=== PATIENT | female | born 1955 | race Caucasian/White ===

== ENCOUNTER 2018-12-14 17:05 | Emergency (ER) | payer OTHER, SELFPAY ==
[2018-12-14 17:05] VITALS: BP 152/86; PULSE 84; RESP 16; TEMP 37.2; O2SAT 96; BMI 26.6
--- NOTE | 2018-12-14 17:43 | RAD_ITS ---
STUDY: X-RAY - LEFT KNEE REASON FOR EXAM: Female, 63 years old. Pain TECHNIQUE: 4 view(s) of the knee. COMPARISON: None. FINDINGS: There is no evidence of fracture or dislocation. There are mild tricompartmental degenerative changes. There is a small suprapatellar joint effusion. There are no radiodense foreign bodies. RAD/Knee 4 or More Views IMPRESSION: No fracture or dislocation. Mild degenerative change. Small joint effusion. Electronically Signed: Ronaldo Jose, at 18:20 EDT Tel , Service support ,
--- NOTE | 2018-12-14 19:12 | ED.VIS.LOWEX ---
History of Present Illness Chief Complaint: Lower Extremity Injury Informant: Patient Occurred: Weeks - 1-2 Context: Sudden Onset Timing: Waxes and wanes Quality of Pain: Aching Current Severity: Moderate Maximum Severity: Severe Worsened by: moving Relieved by: remaining still Associated Symptoms: Loss of Funtion. Negative for: Parasthesia, Weakness Narrative: Patient states when she was going up steps 1 or 2 weeks ago, she felt some pain in her left knee, it subsided, ever since she has been having crackling here and there, today while simply walking around the corner, she suddenly felt extreme pain and the inability to bend her knee at all, feeling like it was locked in place. This has never happened before. Past Medical History - Allergies and Home Meds Allergies/Adverse Reactions: Allergies No Known Allergies Allergy (Verified 12/14/18 17:07) Primary Care Physician: Zohaib Adkins MD [Primary Care Provider] - Smoking Status: Former smoker Review of Systems General: Denies: Chills, Fever Musculoskeletal: Reports: Extremity Pain. Denies: Swelling Skin: Denies: Rash, Wounds Neurological: Denies: Parasthesia, Numbness Physical Exam Vital Signs/Narrative: Vital Signs Temp Pulse Resp BP Pulse Ox 12/14/18 17:05 98.9 F 84 16 152/86 H 96 Inital Vital Signs reviewed: Yes - Extremity Exam Left Knee: Limited ROM - w/o effusion. ext mech intact. unable to flex past 15-20 degrees due to severe pain. all ligaments intact w/ short end points, pain only w/ stressing MCL. stable knee joint on stressing. not excessively warm/hot. no overlying skin color abn or lesions.. Negative for: Deformity General: Well nourished, Well developed Head: Normocephalic, Atraumatic Skin: Normal color, No rash, No Trauma Neurological: Alert, Oriented x3, Cranial nerves II-XII grossly intact, Normal Strength, Normal Sensation Diagnostic/Tx/Re-eval Clinical Impression(s) from Imaging Studies Knee X-Ray 12/14/18 17:43 IMPRESSION: No fracture or dislocation. Mild degenerative change. Small joint effusion. Electronically Signed: Ronaldo Jose, at 18:20 EDT Tel , Service support , - Medical Decision Making Discussed with Dr. Cabrera, agrees that it sounds like this patient may have a meniscus tear. He advised close outpatient follow-up tomorrow with a knee immobilizer and crutches and stated we could offer to the patient to inject her knee with lidocaine, followed by forcibly bending in order to help unlock it and help her with pain in the meantime. She states while having it remain still in a neutral almost fully extended position, she is okay and would prefer to wait for that until she sees orthopedics tomorrow, and agrees with a prescription for pain medication, knee immobilizer, and crutches and will see orthopedics tomorrow. ED Disposition - Plan for ED Patient: Disposition: Home or Assisted Living Diagnosis: Acute internal derangement of left knee Instructions: ED Meniscal Injury Knee Poss, ED Immobilizer Knee Prescriptions: Hydrocodone Bitart/Apap 5-325 [[place] 5MG-325MG] 1 tab PO Q4H PRN PRN 3 Days #12 tab PRN Reason: Pain Referrals: Ronaldo Cabrera MD [STAFF PHYSICIAN] - 1 Day (call in am for appt time)
--- NOTE | 2018-12-14 19:16 | ED.DCSUM_ITS ---
History of Present Illness Chief Complaint: Lower Extremity Injury Informant: Patient Occurred: Weeks - 1-2 Context: Sudden Onset Timing: Waxes and wanes Quality of Pain: Aching Current Severity: Moderate Maximum Severity: Severe Worsened by: moving Relieved by: remaining still Associated Symptoms: Loss of Funtion. Negative for: Parasthesia, Weakness Narrative: Patient states when she was going up steps 1 or 2 weeks ago, she felt some pain in her left knee, it subsided, ever since she has been having crackling here and there, today while simply walking around the corner, she suddenly felt extreme pain and the inability to bend her knee at all, feeling like it was locked in place. This has never happened before. Past Medical History - Allergies and Home Meds Allergies/Adverse Reactions: Allergies No Known Allergies Allergy (Verified 12/14/18 17:07) Primary Care Physician: Zohaib Adkins MD [Primary Care Provider] - Smoking Status: Former smoker Review of Systems General: Denies: Chills, Fever Musculoskeletal: Reports: Extremity Pain. Denies: Swelling Skin: Denies: Rash, Wounds Neurological: Denies: Parasthesia, Numbness Physical Exam Vital Signs/Narrative: Vital Signs Temp Pulse Resp BP Pulse Ox 12/14/18 17:05 98.9 F 84 16 152/86 H 96 Inital Vital Signs reviewed: Yes - Extremity Exam Left Knee: Limited ROM - w/o effusion. ext mech intact. unable to flex past 15- 20 degrees due to severe pain. all ligaments intact w/ short end points, pain only w/ stressing MCL. stable knee joint on stressing. not excessively warm/hot. no overlying skin color abn or lesions.. Negative for: Deformity General: Well nourished, Well developed Head: Normocephalic, Atraumatic Skin: Normal color, No rash, No Trauma Neurological: Alert, Oriented x3, Cranial nerves II-XII grossly intact, Normal Strength, Normal Sensation Diagnostic/Tx/Re-eval Clinical Impression(s) from Imaging Studies Knee X-Ray 12/14/18 17:43 IMPRESSION: No fracture or dislocation. Mild degenerative change. Small joint effusion. Electronically Signed: Ronaldo Jose, at 18:20 EDT Tel , Service support , - Medical Decision Making Discussed with Dr. Cabrera, agrees that it sounds like this patient may have a meniscus tear. He advised close outpatient follow-up tomorrow with a knee immobilizer and crutches and stated we could offer to the patient to inject her knee with lidocaine, followed by forcibly bending in order to help unlock it and help her with pain in the meantime. She states while having it remain still in a neutral almost fully extended position, she is okay and would prefer to wait for that until she sees orthopedics tomorrow, and agrees with a prescription for pain medication, knee immobilizer, and crutches and will see orthopedics tomorrow. ED Disposition - Plan for ED Patient: Disposition: Home or Assisted Living Diagnosis: Acute internal derangement of left knee Instructions: ED Meniscal Injury Knee Poss, ED Immobilizer Knee Prescriptions: Hydrocodone Bitart/Apap 5-325 [[place] 5MG-325MG] 1 tab PO Q4H PRN PRN 3 Days #12 tab PRN Reason: Pain Referrals: Ronaldo Cabrera MD [STAFF PHYSICIAN] - 1 Day (call in am for appt time)
[2018-12-14 20:00] VITALS: RESP 16
== END 2018-12-14 20:01 | disposition home or self-care (01) ==
PROVIDERS: Emergency Provider Emergency Medicine; Family Provider Family Medicine; PCP Family Medicine
DX: S89.92XA Unspecified injury of left lower leg, initial encounter (principal); X58.XXXA Exposure to other specified factors, initial encounter; Y93.01 Activity, walking, marching and hiking; Y92.9 Unspecified place or not applicable; Z87.891 Personal history of nicotine dependence
CPT/HCPCS: 73564; 99284

== ENCOUNTER → 2019-01-09 08:18 | Outpatient (CLI) | payer OTHER, SELFPAY ==
[2018-12-14 17:05] VITALS: BMI 26.6
--- NOTE | 2019-01-09 08:40 | EKG12_ITS ---
Test Reason : PREOP Blood Pressure : / mmHG Vent. Rate : 063 BPM Atrial Rate : 063 BPM P-R Int : 148 ms QRS Dur : 082 ms QT Int : 404 ms P-R-T Axes : 034 -34 037 degrees QTc Int : 413 ms Normal sinus rhythm Left axis deviation Low voltage QRS Cannot rule out Anterior infarct 08-OCT-2010), ag undetermined Abnormal ECG Confirmed by GUSTAVO MONTILLA, DUYEN ([id number]), state editor JULIA URIBE ([id number]) on 01/10/2019 12:24:47 PM Referred By: Tyesha Ruiz Confirmed By:DUYEN CHEN MD
[2019-01-09 09:48] LABS: Hematocrit 41.7 % (37-47); Hemoglobin 13.4 g/dl (12.0-15.0); Mean Corp Hgb Conc 32.1 g/gl (32-36); Mean Corpuscular Hgb 28.3 pg (27.0-32.0); Mean Platelet Vol. 10.1 fl (6.2-12.0); Platelet Count 256 K/mm3 (150-450); RBC Distribution Width CV 14.1 % (11.6-14.6); RBC Distribution Width SD 45.6 fl (35.1-43.9); Red Blood Count 4.74 M/mm3 (4.2-5.4); White Blood Count 4.5 K/mm3 (4.4-11.0)
[2019-01-09 09:57] LABS: Scan Indicated on CBC? Y/N NO
[2019-01-09 10:04] LABS: Anion Gap 9 (5-15); BUN 21 mg/dL (7-18); BUN/Creat Ratio 26.6 RATIO (10-20); Calcium,Total 8.7 mg/dL (8.5-10.1); Chloride 106 mmol/L (98-107); Creatinine, Serum 0.79 mg/dL (0.55-1.02); EST Glomerular Filtration Rate 78 mL/min (>60); Est Glom Filt Rate - Afr Amer 94 mL/min (>60); Glucose 76 mg/dL (74-106); Potassium 4.2 mmol/L (3.5-5.1); Sodium Level 143 mmol/L (136-145)
== END ==
PROVIDERS: Family Provider Family Medicine; PCP Family Medicine; Referring Provider Physician Assistant; Visit Provider Physician Assistant
DX: Z01.818 Encounter for other preprocedural examination (principal); Z01.810 Encounter for preprocedural cardiovascular examination; I10 Essential (primary) hypertension
CPT/HCPCS: 36415; 80048; 85027; 93005

== ENCOUNTER 2019-04-27 17:21 | Emergency (ER) | payer MEDICARE, SELFPAY ==
[2019-04-27 17:22] VITALS: BP 158/77; PULSE 75; RESP 16
[2019-04-27 17:24] VITALS: PULSE 67; RESP 16; TEMP 36.6; O2SAT 99; BMI 35.2
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
[2019-04-27] MEDS: Acetaminophen 325 MG Tablet 650 MG PO (17:47)
[2019-04-27] MEDS: Diphth,Pertuss(Acell),Tet Vac 0.5 ML Vial IM (17:47)
== END 2019-04-27 18:20 | disposition home or self-care (01) ==
PROVIDERS: Emergency Provider Emergency Medicine; Family Provider Family Medicine; PCP Family Medicine
DX: S00.83XA Contusion of other part of head, initial encounter (principal); S00.81XA Abrasion of other part of head, initial encounter; V89.2XXA Person injured in unspecified motor-vehicle accident, traffic, initial encounter; Y92.413 State road as the place of occurrence of the external cause; Y93.89 Activity, other specified; Z87.891 Personal history of nicotine dependence
CPT/HCPCS: 90715; 99284

== ENCOUNTER → 2019-05-21 10:36 | Outpatient (CLI) | payer MEDICARE, SELFPAY ==
[2019-04-27 17:24] VITALS: BMI 35.2
--- NOTE | 2019-05-21 10:38 | US_ITS ---
PROCEDURES: ULTRASOUND AORTA REASON FOR EXAM: Female, 64 years old. Abdominal aortic aneurysm screening. TECHNIQUE: Ultrasound evaluation of the aorta was performed with real-time and static redding-scale imaging. COMPARISON: None. FINDINGS: There is no elongation or tortuosity of the abdominal aorta. Aorta measures: Proximal 1.8 cm. Middle 1.4 cm. Distal 1.5 cm. Aorta measure transversely: Proximal 1.7 cm. Middle 1.5 cm. Distal 1.7 cm. Right iliac artery measures: 1.0 cm. Right iliac artery measure transversely: 1.1 cm. Left iliac artery measures: 0.9 cm. Left iliac artery measure transversely: 0.9 cm. There is no demonstrated aneurysm.. US/Aorta IMPRESSION: Normal abdominal aorta. Specifically, no significant stenosis or aneurysmal dilatation seen. Electronically Signed: Roseline Funes MD at 2:50 EST , Service support ,
== END ==
PROVIDERS: Family Provider Family Medicine; PCP Family Medicine; Referring Provider Family Medicine; Visit Provider Family Medicine
DX: Z13.6 Encounter for screening for cardiovascular disorders (principal)
CPT/HCPCS: 76775

== ENCOUNTER → 2019-05-22 10:56 | Outpatient (CLI) | payer MEDICARE, SELFPAY ==
[2019-04-27 17:24] VITALS: BMI 35.2
--- NOTE | 2019-05-22 10:59 | BD_ITS ---
STUDY: DUAL ENERGY X-RAY ABSORPTIOMETRY / DXA REASON FOR EXAM: Female, 64 years old. The patient is postmenopausal. Loss of height. TECHNIQUE: Bone Mineral Density (BMD) measurements of lumbar spine and bilateral hips were obtained. COMPARISON: None. FINDINGS: Lumbar Spine (L1-L4): g/cm2 (0.981) / T-score (-1.5) / Z-score (0.1) Findings are suggestive of osteopenia with a low fracture risk. Left Femur Total: g/cm2 (0.844) / T-score (-1.3) / Z-score (-0.1) Left Femoral Neck: g/cm2 (0.799) / T-score (-1.7) / Z-score (-0.3) Right Femur Total: g/cm2 (0.931) / T-score (-0.6) / Z-score (0.6) Right Femoral Neck: g/cm2 (0.830) / T-score (-1.5) / Z-score (0.0) BD/Dexa Bone Density Study IMPRESSION: The patient is considered osteopenic as outlined below according to World Mahamed Organization (WHO) criteria with a moderate fracture risk. Reference Information: The T-score is the number of standard deviations above or below the standard which is normal for young adults at their peak bone mineral density. The World Health Organization (WHO) interprets the T-scores as follows: Above -1 Normal bone density Between -1 and -2.5 Osteopenia Equal to / or below -2.5 Osteoporosis As a practical clinical guideline, osteopenia may be graded as follows: Mild -1 through -1.5 Moderate -1.6 through -2.0 Severe -2.1 through -2.4 The Z-score is the number of standard deviations above or below age-matched controls. A Z-score of less than -1.5 would be considered abnormal. References: 1. NIH Osteoporosis and Related Bone Diseases http://www.osteo.org 2. International Society for Clinical Densitometry http://www.iscd.org 3. National Osteoporosis Foundation http://www.nof.org Electronically Signed: Chicho Millan, at 15:07 EST , Service support ,
== END ==
PROVIDERS: Family Provider Family Medicine; PCP Family Medicine; Referring Provider Family Medicine; Visit Provider Family Medicine
DX: Z78.0 Asymptomatic menopausal state (principal)
CPT/HCPCS: 77080

== ENCOUNTER → 2020-02-01 09:46 | Outpatient (CLI) | payer MEDICARE, SELFPAY ==
[2020-02-01 12:24] LABS: Absolute Lymphocyte Count 1.68 X10^3/uL (0.83-4.51); Absolute Neutrophil Count 2.1 X10^3/uL (2.0-7.7); Basophil# 0.04 X10^3/uL; Basophil% 0.9 % (0-1); Eosinophil# 0.08 X10^3/uL; Eosinophils% 1.9 % (0-5); Hematocrit 42.6 % (37-47); Hemoglobin 13.2 g/dL (12.0-15.0); Lymphocyte # 1.68 X10^3/ul (4.0); Lymphocyte % 39.5 % (19-41); Mean Corpuscular Hgb 28.1 pg (27.0-32.0); Mean Corpuscular Volume 90.6 fL (81-99); Mean Platelet Vol. 10.9 fl (6.2-12.0); Monocyte# 0.35 X10^3/uL; Monocyte% 8.2 % (0-10); NRBC Flagged by Analyzer 0 % (0-5); Neutrophil # 2.08 X10^3/uL (2.7-7.7); Platelet Count 236 K/mm3 (150-450); RBC Distribution Width CV 13.2 % (11.6-14.6); RBC Distribution Width SD 43.8 fl (35.1-43.9); White Blood Count 4.3 K/mm3 (4.4-11.0)
[2020-02-01 12:39] LABS: ALB/GLOB Ratio 1.2 RATIO (0.9-2.4); AST(SGOT) 16 U/L (15-37); Alanine Aminotransfer ALT/SGPT 23 U/L (13-56); Albumin, Serum 3.6 g/dL (3.2-5.0); Alkaline Phosphatase 62 U/L (45-117); Anion Gap 3 (5-15); BUN 16 mg/dL (7-18); BUN/Creat Ratio 19.1 RATIO (10-20); Calcium,Total 8.4 mg/dL (8.5-10.1); Chloride 111 mmol/L (98-107); Creatinine, Serum 0.84 mg/dL (0.55-1.02); EST Glomerular Filtration Rate 73 mL/min (>60); Est Glom Filt Rate - Afr Amer 88 mL/min (>60); Globulin 3.1 g/dL (2.2-4.2); Glucose 92 mg/dL (74-106); Protein, Total 6.7 g/dL (6.4-8.2); Sodium Level 142 mmol/L (136-145); Thyroid Stim Hormone (TSH) 1.48 uIU/mL (0.358-3.74)
== END ==
PROVIDERS: PCP Family Medicine; Referring Provider Family Medicine; Visit Provider Family Medicine
DX: R00.2 Palpitations (principal)
CPT/HCPCS: 36415; 80053; 84443; 85025

== ENCOUNTER 2021-09-10 07:59 | Outpatient (CLI) | payer MEDICARE, SELFPAY ==
--- NOTE | 2021-09-10 08:04 | BI_ITS ---
MAMMOGRAPHY - BILATERAL SCREENING REASON FOR EXAM: Female, 66 years old. Routine annual screening examination. PERTINENT HISTORY: Grandmother with breast cancer. TECHNIQUE: Digital bilateral breast paulie (3D mammographic acquisition) in the CC and MLO projections. 2-D mediolateral oblique (MLO) and craniocaudad (CC) views of both breasts were obtained. CAD: Full Field Digital Mammography with Computer Added Detection was performed. COMPARISON: None. Baseline examination. FINDINGS: Breast Composition: There are scattered areas of fibroglandular density. There are no dominant masses or suspicious calcifications. No other significant abnormalities are identified. BI/SCREENING MAMM (CAD), BILAT IMPRESSION: Negative screening mammogram. Yearly followup mammogram recommended. (A) ASSESSMENT CATEGORY: BIRADS Category 1: Negative. A letter regarding these results will be sent to the patient by the facility within 30 days. Approximately 10% of breast cancers are not detected by mammography. A normal mammogram should not delay biopsy of a clinically suspicious abnormality. [id number] Electronically Signed: Chicho Millan MD at 9:50 EST ,
== END 2021-09-10 23:59 | disposition home or self-care (01) ==
LOC: OPBI 08:01
PROVIDERS: PCP Family Medicine; Visit Provider Family Medicine
DX: Z12.31 Encounter for screening mammogram for malignant neoplasm of breast (principal)
CPT/HCPCS: 77067

== ENCOUNTER 2021-10-09 08:15 | Outpatient (CLI) | payer MEDICARE, SELFPAY ==
[2021-10-09 10:32] LABS: Vitamin D,25 Hydroxy 26.7 ng/mL
[2021-10-09 10:36] LABS: BUN 19 mg/dL (7-18); BUN/Creat Ratio 21.3 RATIO (10-20); Calcium,Total 8.7 mg/dL (8.5-10.1); Cholesterol 212 mg/dL (200); Creatinine, Serum 0.89 mg/dL (0.55-1.02); EST Glomerular Filtration Rate 67 mL/min (>60); Est Glom Filt Rate - Afr Amer 81 mL/min (>60); Glucose 85 mg/dL (74-106); Triglycerides 85 mg/dL
[2021-10-09 10:37] LABS: Anion Gap 3 (5-15); Chloride 110 mmol/L (98-107); High Density Lipoprotein 72 mg/dL; Potassium 4.2 mmol/L (3.5-5.1); Sodium Level 141 mmol/L (136-145); Thyroid Stim Hormone (TSH) 2.17 uIU/mL (0.358-3.74); Very Low Density Lipoprotein 17 mg/dL (5-40)
== END 2021-10-09 23:59 | disposition home or self-care (01) ==
LOC: MFPLAB 08:19
PROVIDERS: PCP Family Medicine; Referring Provider Family Medicine; Visit Provider Family Medicine
DX: M85.80 Other specified disorders of bone density and structure, unspecified site (principal); I10 Essential (primary) hypertension
CPT/HCPCS: 36415; 80048; 80061; 82306; 84443

== ENCOUNTER 2021-10-21 10:42 | Outpatient (CLI) | payer MEDICARE, SELFPAY ==
--- NOTE | 2021-10-21 10:50 | BD_ITS ---
STUDY: DUAL ENERGY X-RAY ABSORPTIOMETRY / DXA REASON FOR EXAM: Female, 66 years old. [id number]. Patient is postmenopausal. TECHNIQUE: Bone Mineral Density (BMD) measurements of lumbar spine and bilateral hips were obtained. COMPARISON: Comparison is made with prior study dated 05/22/2019. FINDINGS: Lumbar Spine (L1-L4): g/cm2 (0.890) / T-score (-1.2) / Z-score (0.7) Findings are suggestive of osteopenia with a low fracture risk. Left Femur Total: g/cm2 (0.789) / T-score (-1.3) / Z-score (0.1) Left Femoral Neck: g/cm2 (0.635) / T-score (-1.9) / Z-score (-0.3) Right Femur Total: g/cm2 (0.886) / T-score (-0.5) / Z-score (0.9) Right Femoral Neck: g/cm2 (0.654) / T-score (-1.8) / Z-score (0.1) The T-Scores on the most recent prior examination were: Lumbar Spine (L1-L4): There has been worsening of bone density since the previous examination. Left Femur Total: which represents an improvement of 0.8%. Right Femur Total: which represents an improvement of 2.1%. BD/Dexa Bone Density Study IMPRESSION: The patient is considered osteopenic as outlined below according to World Mahamed Organization (WHO) criteria with a moderate fracture risk. There has been improvement of bone density since the previous examination. Reference Information: The T-score is the number of standard deviations above or below the standard which is normal for young adults at their peak bone mineral density. The World Health Organization (WHO) interprets the T-scores as follows: Above -1 Normal bone density Between -1 and -2.5 Osteopenia Equal to / or below -2.5 Osteoporosis As a practical clinical guideline, osteopenia may be graded as follows: Mild -1 through -1.5 Moderate -1.6 through -2.0 Severe -2.1 through -2.4 The Z-score is the number of standard deviations above or below age-matched controls. A Z-score of less than -1.5 would be considered abnormal. References: 1. NIH Osteoporosis and Related Bone Diseases www osteo.org 2. International Society for Clinical Densitometry www iscd.org 3. National Osteoporosis Foundation www nof.org Electronically Signed: Chicho Millan MD at 15:10 EDT ,
== END 2021-10-21 23:59 | disposition home or self-care (01) ==
LOC: OPBD 10:42
PROVIDERS: PCP Family Medicine; Visit Provider Family Medicine
DX: Z78.0 Asymptomatic menopausal state (principal)
CPT/HCPCS: 77080

== ENCOUNTER → 2023-04-14 | Outpatient (CLI) | payer MEDICARE, SELFPAY ==
[2023-04-14 18:14] LABS: Vitamin D,25 Hydroxy 34.9 ng/mL
[2023-04-14 18:22] LABS: Anion Gap 3 (5-15); BUN 12 mg/dL (7-18); BUN/Creat Ratio 14.2 RATIO (10-20); Calcium,Total 8.7 mg/dL (8.5-10.1); Chloride 110 mmol/L (98-107); Creatinine, Serum 0.85 mg/dL (0.55-1.02); EST Glomerular Filtration Rate 71 mL/min (>60); Est Glom Filt Rate - Afr Amer 86 mL/min (>60); Glucose 88 mg/dL (74-106); Potassium 3.7 mmol/L (3.5-5.1); Sodium Level 141 mmol/L (136-145); Thyroid Stim Hormone (TSH) 1.56 uIU/mL (0.358-3.74)
== END | disposition home or self-care (01) ==
LOC: MTLAB 17:08
PROVIDERS: PCP Family Medicine; Referring Provider Family Medicine; Visit Provider Family Medicine
DX: E55.9 Vitamin D deficiency, unspecified (principal); M85.80 Other specified disorders of bone density and structure, unspecified site; I10 Essential (primary) hypertension
CPT/HCPCS: 36415; 80048; 82306; 84443

== ENCOUNTER → 2024-03-14 | Outpatient (CLI) | payer MEDICARE, SELFPAY ==
--- NOTE | 2024-03-14 09:42 | BI_ITS ---
MAMMOGRAPHY - BILATERAL SCREENING REASON FOR EXAM: Female, 68 years old. Routine annual screening examination. PERTINENT HISTORY: Grandmother with breast cancer. TECHNIQUE: Digital bilateral breast anupam (3D mammographic acquisition) in the CC and MLO projections. 2-D mediolateral oblique (MLO) and craniocaudad (CC) views of both breasts were obtained. CAD: Full Field Digital Mammography with Computer Added Detection was performed. COMPARISON: Comparison is made with prior study dated September 10, 2021. FINDINGS: Breast Composition: There are scattered areas of fibroglandular density. There are no dominant masses or suspicious calcifications. No other significant abnormalities are identified. There has been no significant change since the prior study. BI/SCRN MAMM (CAD)W/ANUPAM BILAT IMPRESSION: Stable bilateral screening mammogram. Yearly follow-up mammogram recommended. (A) ASSESSMENT CATEGORY: BIRADS Category 1: Negative. A letter regarding these results will be sent to the patient by the facility within 30 days. Approximately 10% of breast cancers are not detected by mammography. A normal mammogram should not delay biopsy of a clinically suspicious abnormality. [id number] Electronically Signed: Chicho Millan MD at 10:52 EDT ,
== END | disposition home or self-care (01) ==
LOC: OPBI 09:41
PROVIDERS: PCP Family Medicine; Referring Provider Family Medicine; Visit Provider Family Medicine
DX: Z12.31 Encounter for screening mammogram for malignant neoplasm of breast (principal)
CPT/HCPCS: 77063; 77067

== ENCOUNTER → 2025-03-29 | Outpatient (CLI) | payer MEDICARE, SELFPAY ==
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
[2025-03-29 12:30] LABS: Anion Gap 11 (5-15); BUN 16 mg/dL (4-19); BUN/Creat Ratio 20.4 RATIO (10-20); Calcium,Total 8.8 mg/dL (7.6-11.0); Carbon Dioxide 23.2 mmol/L (21.0-32.0); Chloride 109 mmol/L (98-108); Cholesterol 210 mg/dL (<=200); Glucose 85 mg/dL (70-99); Low Density Lipoprotein Calc. 116 mg/dL; Potassium 3.9 mmol/L (3.3-5.1); Triglycerides 112 mg/dL; Very Low Density Lipoprotein 22 mg/dL (5-40); Vitamin D,25 Hydroxy 32.1 ng/mL (30-100); cholesterol:hdl ratio screen 2.95
[2025-03-29 12:32] LABS: CRP < 3.00 mg/L (0.0-3.0)
[2025-04-01 15:08] LABS: ANTINUCLEAR ANTIBODIES DIRECT Positive (Negative)
== END | disposition home or self-care (01) ==
LOC: MTLAB 07:49
PROVIDERS: PCP Family Medicine; Referring Provider Family Medicine; Visit Provider Family Medicine
DX: M85.80 Other specified disorders of bone density and structure, unspecified site (principal); E78.00 Pure hypercholesterolemia, unspecified
CPT/HCPCS: 36415; 80048; 80061; 82306; 84443; 85652; 86038; 86140; 86431

== ENCOUNTER → 2025-04-30 | Outpatient (CLI) | payer MEDICARE, SELFPAY ==
--- NOTE | 2025-04-30 07:58 | BI_ITS ---
EXAM: SCRN MAMM (CAD)W/ANUPAM BILAT DATE: 04/30/2025 CLINICAL HISTORY: F, Age 70 y/o , SCREENING Grandmother with breast cancer. TECHNIQUE: Procedure Code: [id number] Modality: MG Procedure: SCRN MAMM (CAD)W/ANUPAM BILAT COMPARISON: Prior exam(s) dated prior study dated March 14, 2024.. FINDINGS: TISSUE DENSITY: There are scattered areas of fibroglandular density. Bilateral Breast Mammographic Findings: No significant masses, calcifications or other abnormalities are identified. No suspicious masses, areas of developing architectural distortion, or suspicious calcifications. There has been no significant interval change. BI/SCRN MAMM (CAD)W/ANUPAM BILAT IMPRESSION: Stable bilateral screening mammogram. OVERALL FINAL ASSESSMENT BI-RADS 1: NEGATIVE. RECOMMENDATION: Routine annual follow-up in 1 Year Additional Recommendation none A letter with findings and recommendations will be mailed to the patient. Reading Location: [place] [address]
--- NOTE | 2025-04-30 08:01 | BD_ITS ---
PROCEDURE: DEXA BONE DENSITY STUDY 04/30/2025 REASON FOR EXAM: F, age 70 y/o . Postmenopausal. TECHNIQUE: Procedure Code: BDDBD Modality: DX Procedure: DEXA BONE DENSITY STUDY COMPARISON: Prior study dated October 21, 2021. FINDINGS: BMD and T-SCORES Lumbar spine: 0.943 g/cm2, T-score -0.7 Levels: L1 through L4 Change from prior: Improvement of 6%. Left femoral neck: 0.635 g/cm2, T-score -1.9 Femoral neck comparison data not recommended for monitoring change. Left total hip: 0.793 g/cm2, T-score -1.2 Change from prior: Improvement of 0.6%. Right femoral neck: 0.660 g/cm2, T-score -1.7 Femoral neck comparison data not recommended for monitoring change. Right total hip: 0.865 g/cm2, T-score -0.6 Change from prior: Loss of 2.4%. The World Health Organization has defined the following categories based on bone density: Normal bone density: T-score equal to or greater than -1.0 Osteopenia: T-score between -1.0 and -2.5 Osteoporosis: T-score equal to or less than -2.5 FRAX (or Comparable) Fracture Risk Assessment: 10 Year Probability of Fracture: Major Osteoporotic Fracture: 12th% Hip Fracture: 2.2% (Note: FRAX is not to be reported in setting of normal range bone density, osteoporosis on DEXA, known history of osteoporosis, prior osteoporotic hip or vertebral fracture, or for any patient undergoing pharmacological treatment for bone loss.) The National Osteoporosis Foundation (NOF) recommends pharmacological treatment for patients with a FRAX 10-year risk of 3% or higher for a hip fracture, or 20% or higher for a major osteoporotic fracture, to prevent osteoporosis and reduce fracture risk. The patient does meet the pharmacological treatment recommendations for prevention of osteoporosis. BD/Dexa Bone Density Study IMPRESSION: OSTEOPENIA. Recommend follow-up as clinically warranted. Reading Location: [place] [address]
== END | disposition home or self-care (01) ==
PROVIDERS: PCP Family Medicine; Referring Provider Family Medicine; Visit Provider Family Medicine
DX: Z12.31 Encounter for screening mammogram for malignant neoplasm of breast (principal); M81.0 Age-related osteoporosis without current pathological fracture
CPT/HCPCS: 77063; 77067; 77080